=== PATIENT | female | born 1970 | race Caucasian/White ===

== ENCOUNTER 2018-04-19 17:22 | Emergency (ER) | payer MEDICAID, MEDICARE ==
[2018-04-19] MEDS ORDERED: Polymyxin B/Trimethoprim 10 ML Bottle EYEBOTH ONE (17:23)
[2018-04-19] MEDS ORDERED: Doxycycline 100 MG Cap PO ONE (17:23)
[2018-04-19 17:39] VITALS: BP 148/92
[2018-04-19] MEDS ORDERED: Doxycycline 100 MG Cap ONE (20:36)
[2018-04-19] MEDS ORDERED: Polymyxin B/Trimethoprim 10 ML Bottle ONE (20:38)
--- NOTE | 2018-04-19 20:42 | EDM.PDOC ---
ED HPI GENERAL MEDICAL PROBLEM - General Chief Complaint: ENT Problem Stated Complaint: EYES IRRITATED Time Seen by Provider: 04/19/18 19:50 Source of Information: Reports: Patient History Limitations: Reports: No Limitations - History of Present Illness INITIAL COMMENTS - FREE TEXT/NARRATIVE: right ear pain drainage, sore throat eyes red mattery since yesterday. Tried muccinex no relief. No humidifier. No GI symptoms, sinus pressure Treatments MANAGER DISCOVERY: Reports: Other (see below) Other Treatments MANAGER DISCOVERY: musinex - Related Data Allergies Allergy/AdvReac Type Severity Reaction Status Date / Time Penicillins Allergy Anaphylactic Verified 04/19/18 20:12 Shock Home Meds: Home Meds . [No Known Home Meds] 04/19/18 [History] Past Medical History HEENT History: Reports: Otitis Media [employer] History: Reports: Social & Family History - Tobacco Use Smoking Status *Q: Never Smoker Second Hand Smoke Exposure: No - Caffeine Use Caffeine Use: Reports: None - Recreational Drug Use Recreational Drug Use: No ED ROS ENT - Review of Systems Review Of Systems: ROS reveals no pertinent complaints other than HPI. ED EXAM, ENT - Physical Exam Exam: See Below Exam Limited By: No Limitations General Appearance: Alert, Mild Distress Eye Exam: Bilateral Eye: PERRL, Other (bilateral elza oribital redness upper lids puffy left greater than right extending lower lid and medial nasal bridge) Ears: Normal External Exam, Auricular Tenderness (right), TM Erythema (right), TM Fluid (left) Nose: Normal Inspection Mouth/Throat: Tonsillar Erythema (mild). No: Tonsillar Exudates Head: Atraumatic, Normocephalic, Sinus Tenderness (frontal ethmoid) Respiratory/Chest: No Respiratory Distress, Lungs Clear Cardiovascular: Regular Rate, Rhythm GI/Abdominal: Normal Bowel Sounds Back: Full Range of Motion Extremities: Normal Inspection Neurological: Alert, Oriented, Normal Cognition Psychiatric: Normal Affect Skin: Warm, Dry, Intact, Normal Color Course - Vital Signs Last Recorded V/S: Last Vital Signs Temp 98.4 F 04/19/18 17:38 Pulse 68 04/19/18 17:38 Resp 16 04/19/18 17:38 BP 148/92 H 04/19/18 17:38 Pulse Ox 100 04/19/18 17:38 - Orders/Labs/Meds Orders: Active Orders 24 hr Category Date Time Status CULTURE STREP A CONFIRMATION [RM] Stat Lab 04/19/18 17:37 Results STREP SCRN A RAPID W CULT CONF [RM] Stat Lab 04/19/18 17:37 Results Meds: Medications Discontinued Medications Generic Name Dose Route Start Last Admin Trade Name Layton PRN Reason Stop Dose Admin Doxycycline Hyclate Confirm 04/19/18 20:36 04/19/18 20:47 Vibramycin Administered 04/19/18 20:37 Not Given Dose 200 mg .ROUTE .STK-MED ONE Polymyxin/Trimethoprim Sulfate Confirm 04/19/18 20:38 04/19/18 20:47 Polytrim Ophth Soln Administered 04/19/18 20:39 Not Given Dose 10 ml .ROUTE .STK-MED ONE Departure - Departure Time of Disposition: 20:36 Disposition: Home, Self-Care 01 Condition: Good Clinical Impression: Otitis media Qualifiers: Otitis media type: suppurative Chronicity: acute Laterality: right Recurrence: not specified as recurrent Spontaneous tympanic membrane rupture: without spontaneous rupture Qualified Code(s): H66.001 - Acute suppurative otitis media without spontaneous rupture of ear drum, right ear Sinusitis Qualifiers: Sinusitis location: pansinusitis Chronicity: acute Recurrence: non-recurrent Qualified Code(s): J01.40 - Acute pansinusitis, unspecified Conjunctivitis Qualifiers: Conjunctivitis type: blepharoconjunctivitis Blepharoconjunctivitis type: unspecified Laterality: bilateral Qualified Code(s): H10.503 - Unspecified blepharoconjunctivitis, bilateral - Discharge Information *PRESCRIPTION DRUG MONITORING PROGRAM REVIEWED*: Not Applicable *COPY OF PRESCRIPTION DRUG MONITORING REPORT IN PATIENT RAKAN: Not Applicable Instructions: Bacterial Conjunctivitis, [id number], Sinusitis, Adult, Easy-to -Read Referrals: Mauro Sosa NP [Primary Care Provider] - Forms: ED Department Discharge Additional Instructions: increase fluid alternate tylenol and ibuprofen every 4 hours as needed for fever/discomfort polymyxin 2 drops to both eyes 4 times daily for 5 days doxycycline 100mg one twice daily for 10 days follow up if symptoms worsening or increased redness and swelling around eyes
== END 2018-04-19 20:45 | disposition home or self-care (01) ==
LOC: DL.ED 17:22
DX: H10.503 Unspecified blepharoconjunctivitis, bilateral (principal); H66.001 Acute suppurative otitis media without spontaneous rupture of ear drum, right ear; J01.40 Acute pansinusitis, unspecified; Z88.0 Allergy status to penicillin
CPT/HCPCS: 87081; 87430; 87804; 99283; A9270-GY